=== PATIENT | male | born 2000 | race African-American/Black ===

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

== ENCOUNTER 2024-11-05 18:57 | Emergency (ER) | payer OTHER, SELFPAY ==
[2024-11-05] MEDS ORDERED: Acetaminophen 500 MG TAB ONE (19:14)
== END 2024-11-05 19:44 | disposition home or self-care (01) ==
LOC: NAV ERS 18:57
DX: J11.1 Influenza due to unidentified influenza virus with other respiratory manifestations (principal)
CPT/HCPCS: 87428; 99284